=== PATIENT | female | born 1985 | race Asian ===

== ENCOUNTER 2016-07-13 07:30 | Inpatient (IN) | payer SELFPAY ==
[~2016-07-13] VITALS: Ht 160 cm; Wt 64.0 kg
[2016-07-13] MEDS ORDERED: LACTATED RINGERS 1,000 ML IV SCH (09:16)
[2016-07-13] MEDS ORDERED: OXYTOCIN 10 UNITS/ML VIAL IM SCH (09:20)
[2016-07-13] MEDS ORDERED: IBUPROFEN 800 MG TAB PO PRN (09:20)
[2016-07-13] MEDS ORDERED: NALBUPHINE 10 MG/ML AMP IVP PRN (09:20)
[2016-07-13] MEDS ORDERED: CARBOPROST 250 MCG/ML AMP IM PRN (09:20)
[2016-07-13] MEDS ORDERED: METHYLERGONOVINE 0.2 MG/ML AMP IM PRN ×2 (09:20→23:05)
[2016-07-13] MEDS ORDERED: PROMETHAZINE 25 MG/ML VIAL IVP PRN (09:20)
[2016-07-13] MEDS ORDERED: ROPIVACAINE 0.2%/NS PREMIX 250 ML EPI ONE (10:16)
[2016-07-13] MEDS ORDERED: OXYTOCIN 20 UNITS/LR PREMIX 1,000 ML IV SCH (11:45)
[2016-07-13] MEDS ORDERED: OXYTOCIN 20 UNITS/LR PREMIX 1,000 ML IV ONE (11:50)
[2016-07-13] MEDS ORDERED: PRENATAL LOW IR1 TA1 PO (12:00)
[2016-07-13] MEDS ORDERED: OXYTOCIN 10 UNITS/ML VIAL ONE (17:15)
[2016-07-13] MEDS ORDERED: METHYLERGONOVINE 0.2 MG/ML AMP ONE (17:16)
[2016-07-13] MEDS ORDERED: oxyCODONE/APAP 5/325 MG 1 TAB TAB PO PRN (23:05)
[2016-07-13] MEDS ORDERED: WITCH HAZEL 40 PAD PACKAGE TP PRN (23:05)
[2016-07-13] MEDS ORDERED: OXYTOCIN 10 UNITS/ML VIAL IM PRN (23:05)
[2016-07-13] MEDS ORDERED: HYDROcodone/APAP 5/325 MG 1 TAB TAB PO PRN (23:05)
[2016-07-13] MEDS ORDERED: MEASLES, MUMPS, AND RUBELLA 1 VIAL SQVAC PRN (23:05)
[2016-07-13] MEDS ORDERED: TEMAZEPAM 15 MG CAP PO PRN (23:05)
[2016-07-14] MEDS ORDERED: BETHANECHOL 25 MG TAB PO PRN (06:20)
[2016-07-14] MEDS ORDERED: BETHANECHOL 25 MG TAB PO SCH (07:00)
--- NOTE | 2016-07-14 08:23 | NUR ---
PATIENT HAS BEEN SCREENED AND CATEGORIZED LOW NUTRITION RISK. PATIENT WILL BE SEEN WITHIN 7 DAYS OF ADMISSION. 07/20/[address]
[2016-07-14] MEDS: IBUPROFEN 800 MG TAB PO PRN (08:51)
[2016-07-14] MEDS ORDERED: INFLUENZA VIRUS VACCINE QUAD 0.5 ML SYR IMVAC SCH ×2 (09:00)
[2016-07-14] MEDS ORDERED: DOCUSATE SOD/SENNA 50/8.6 MG 1 TAB PO SCH (21:00)
[2016-07-15] MEDS: IBUPROFEN 800 MG TAB PO PRN (08:49)
== END 2016-07-15 15:25 | disposition home or self-care (01) | DRG 775 ==
LOC: MFCC 07:30
PROVIDERS: ADMIT Obstetrics & Gynecology; ATTEND Obstetrics & Gynecology
PROC: 0W8NXZZ Division of Female Perineum, External Approach (ICD-10-PCS; principal; 2016-07-13)
PROC: 10E0XZZ Delivery of Products of Conception, External Approach (ICD-10-PCS; 2016-07-13)
PROC: 3E0S3CZ (ICD-10-PCS; 2016-07-13)
DX: O70.9 Perineal laceration during delivery, unspecified (principal); Z3A.39 39 weeks gestation of pregnancy; Z37.0 Single live birth; Z23 Encounter for immunization